=== PATIENT | female | born 1940 | race Caucasian/White ===

== ENCOUNTER 2021-07-04 13:36 | Emergency (ER) | payer OTHER, MEDICARE ==
[2021-07-04 13:42] VITALS: BMI 25.4
[2021-07-04] MEDS ORDERED: BEBTELOVIMAB (EUA) 175 MG/2 ML VIAL IVPUSH ONE (14:03)
[2021-07-04 17:06] VITALS: BP 156/89; PULSE 89; TEMP 99
== END 2021-07-04 17:06 | disposition home or self-care (01) ==
LOC: JCOVINFU 13:36
PROC: 3E033GC Introduction of Other Therapeutic Substance into Peripheral Vein, Percutaneous Approach (ICD-10-PCS; principal; 2021-07-04)
DX: U07.1 COVID-19 (principal)
CPT/HCPCS: 99284-25; M0222; Q0222